=== PATIENT | male | born 1940 | race Caucasian/White ===

== ENCOUNTER 2017-11-05 05:04 | Inpatient (IN) | payer MEDICARE, BC ==
[2017-11-03 15:58] LABS: BASOPHILS % 0.1 % (0.0-1.0); EOSINOPHILS # (AUTO) 0.1 (0.0-0.4); EOSINOPHILS % 1.1 % (0.0-6.0); HEMATOCRIT 40.9 % (38.2-49.6); LYMPHOCYTES # (AUTO) 1.7 (1.0-3.2); MEAN CORPUSCULAR HEMOGLOBIN 30.8 pg (28-32); MEAN CORPUSCULAR HGB CONC 34.2 g/dL (31-35); MEAN CORPUSCULAR VOLUME 89.9 fL (81-99); MONOCYTES # (AUTO) 0.6 (0.2-0.8); MONOCYTES % 7.1 % (4.4-11.3); NEUTROPHILS # (AUTO) 5.5 (2.1-6.9); NEUTROPHILS % 69.4 % (38.7-80.0); PLATELET COUNT 223 x10e3/uL (140-360); RED BLOOD COUNT 4.55 x10e6/uL (4.3-5.7); RED CELL DISTRIBUTION WIDTH 12.9 % (11.7-14.4)
--- NOTE | 2017-11-03 16:04 | Diagnostic Imaging Report ---
PROCEDURE: Frontal and lateral views of the chest. COMPARISON: 06/28/15 INDICATIONS: PRE OP CHEST XRAY FINDINGS: Lines/tubes: None. Lungs: The lungs are well inflated and clear. There is no evidence of pneumonia or pulmonary edema. Pleura: There is no pleural effusion or pneumothorax. Heart and mediastinum: The heart and the mediastinum are normal. Bones: No acute bony abnormality. Degenerative changes of thoracic spine. Partially mid cervical spine fusion hardware. IMPRESSION: 1. No acute cardiopulmonary disease. Dictated by: Jovanny Schultz M.D. on 11/03/2017 at 16:10 Electronically approved by: Jovanny Schultz M.D. on 11/03/2017 at 16:10
[~2017-11-05] VITALS: Ht 182.9 cm; Wt 111.1 kg
[~2017-11-05 05:04] MED LIST: ADVAIR HFA 115-12 GM; ASPIR 8181 MG PO; DICLOFENAC SODI75 MG PO; DICLOFENAC TOP; FINASTERIDE5 MG PO; FLUTICASONE PRO16 GM; LISINOPRIL5 MG PO; MISOPROSTOL200 MCG PO; SIMVASTATIN20 MG PO; SODIUM TOP; TAMSULOSIN HCL0.4 MG; VOLTAREN100 GM TOP
[2017-11-05] MEDS ORDERED: GENTAMICIN 80MG/NS 100 ML 200 ML IV ONE (05:42)
[2017-11-05] MEDS ORDERED: CEFTRIAXONE SOD 1 GM VIAL ONE (05:42)
[2017-11-05] MEDS ORDERED: BELLADONNA/OPIUM 30 MG SUPP RC ONE (06:39)
[2017-11-05] MEDS ORDERED: IOPAMIDOL 300MG/ML 50ML INFUS..BTL IV ONE (06:39)
[2017-11-05] MEDS ORDERED: FENTANYL CITRATE/PF 100MCG/2 ML INJ ONE ×2 (08:58→17:41)
[2017-11-05] MEDS ORDERED: HYDROCODONE/APAP 5MG-325MG TAB ONE (10:30)
[2017-11-05] MEDS ORDERED: D5.45%NS/KCL 20MEQ 1,000 ML IV SCH (11:50)
[2017-11-05] MEDS ORDERED: DIPHENHYDRAMINE HCL 25 MG CAP PO PRN (12:00)
[2017-11-05] MEDS ORDERED: ONDANSETRON HCL INJ 2 MG/ML VIAL IV PRN (12:00)
[2017-11-05] MEDS ORDERED: DIPHENHYDRAMINE HCL INJ 50 MG/ML VIAL IM PRN (12:00)
[2017-11-05] MEDS ORDERED: ACETAMINOPHEN 1000 MG/100 ML IV PRN (12:00)
[2017-11-05] MEDS ORDERED: NALOXONE HCL INJ 0.4 MG/ML AMP IV PRN (12:00)
[2017-11-05] MEDS ORDERED: MORPHINE SULFATE 1 MG/ML 30ML PCA IV PRN (12:00)
[2017-11-05 13:37] VITALS: BP 126/63
[2017-11-05] MEDS: OXYBUTYNIN CHLORIDE 5 MG TAB PO SCH ×2 (14:15→16:55)
[2017-11-05] MEDS ORDERED: SEVOFLURANE INHAL SOLN 250 ML PEN BTL ONE (14:24)
[2017-11-05] MEDS ORDERED: PROPOFOL IV EMULSION 10 MG/ML 20 ML VIAL ONE (14:24)
[2017-11-05] MEDS ORDERED: DEXAMETHASONE SOD PHOS INJ 4 MG/ML VIAL ONE (14:24)
[2017-11-05] MEDS ORDERED: ONDANSETRON HCL INJ 2 MG/ML VIAL ONE (14:24)
[2017-11-05] MEDS ORDERED: LIDOCAINE HCL 2% LOCAL INJ 5 ML SDV VIAL INJ ONE (14:24)
[2017-11-05] MEDS ORDERED: EPHEDRINE SULFATE INJ 50 MG/10 ML SYR ONE (14:24)
[2017-11-05] MEDS ORDERED: GLYCOPYRROLATE INJ 1MG/ 5 ML SYR ONE (14:24)
[2017-11-05] MEDS ORDERED: FLUTICASONE PROPIONATE NASAL SPRAY NS PRN (15:15)
[2017-11-05 16:00] VITALS: BP 135/68
[2017-11-05] MEDS: PHENAZOPYRIDINE HCL 100 MG TAB PO SCH (16:00)
[2017-11-05] MEDS: DOCUSATE SODIUM 100 MG CAP PO SCH (16:55)
[2017-11-05] MEDS: DICLOFENAC SOD 50 MG TAB PO SCH (16:55)
[2017-11-05] MEDS: ACETAMINOPHEN/CODEINE 300MG - 30MG TAB PO PRN ×2 (16:55→23:38)
[2017-11-05] MEDS: MISOPROSTOL 100 MCG TAB PO SCH (16:59)
[2017-11-05] MEDS ORDERED: NON-FORMULARY MEDICATION (Diclofenac Sodium 75 MG) PO SCH (17:00)
[2017-11-05] MEDS ORDERED: MISOPROSTOL 200 MCG PO SCH (17:00)
[2017-11-05] MEDS ORDERED: MIDAZOLAM HCL 2 MG/2 ML VIAL ONE (17:41)
[2017-11-05] MEDS: DEXTROSE 5%/0.45% SOD CHL 1,000 ML IV SCH (19:51)
[2017-11-05 20:00] VITALS: BP 136/58
[2017-11-05 20:12] VITALS: BP 136/58
[2017-11-05] MEDS: SIMVASTATIN 20 MG TAB PO SCH (20:53)
[2017-11-06] VITALS (8 sets, daily range): BP systolic 119–158; BP diastolic 56–70
[2017-11-06] MEDS: DEXTROSE 5%/0.45% SOD CHL 1,000 ML IV SCH ×3 (03:45→20:48)
[2017-11-06 04:36] LABS: BASOPHILS % 0.1 % (0.0-1.0); EOSINOPHILS % 0.1 % (0.0-6.0); LYMPHOCYTES # (AUTO) 1.3 (1.0-3.2); LYMPHOCYTES % 11.8 % (18.0-39.1); MEAN CORPUSCULAR HEMOGLOBIN 30.2 pg (28-32); MEAN CORPUSCULAR HGB CONC 33.3 g/dL (31-35); MEAN CORPUSCULAR VOLUME 90.7 fL (81-99); MONOCYTES # (AUTO) 0.7 (0.2-0.8); MONOCYTES % 6.6 % (4.4-11.3); NEUTROPHILS # (AUTO) 8.8 (2.1-6.9); PLATELET COUNT 217 x10e3/uL (140-360); RED CELL DISTRIBUTION WIDTH 13.2 % (11.7-14.4)
[2017-11-06 05:00] LABS: CREATININE, SERUM 1.19 mg/dL (0.72-1.25)
[2017-11-06] MEDS ORDERED: LISINOPRIL 2.5 MG TAB PO SCH (09:00)
[2017-11-06] MEDS ORDERED: SIMVASTATIN 20 MG TAB PO SCH (09:00)
[2017-11-06] MEDS ORDERED: NON-FORMULARY MEDICATION (Lisinopril 5 MG) PO SCH (09:00)
[2017-11-06] MEDS: DICLOFENAC SOD 50 MG TAB PO SCH ×2 (10:23→18:00)
[2017-11-06] MEDS: DOCUSATE SODIUM 100 MG CAP PO SCH ×2 (10:23→18:00)
[2017-11-06] MEDS: FINASTERIDE 5 MG TAB PO SCH (10:23)
[2017-11-06] MEDS: PHENAZOPYRIDINE HCL 100 MG TAB PO SCH ×3 (10:23→20:11)
[2017-11-06] MEDS: TAMSULOSIN HCL 0.4 MG CAP PO SCH (10:23)
[2017-11-06] MEDS: MISOPROSTOL 100 MCG TAB PO SCH ×2 (10:23→18:00)
[2017-11-06] MEDS: OXYBUTYNIN CHLORIDE 5 MG TAB PO SCH ×3 (10:23→20:11)
[2017-11-06] MEDS: SIMVASTATIN 20 MG TAB PO SCH (20:11)
[2017-11-07] VITALS (8 sets, daily range): BP systolic 107–166; BP diastolic 51–79
[2017-11-07 04:28] LABS: BASOPHILS % 0.3 % (0.0-1.0); EOSINOPHILS # (AUTO) 0.3 (0.0-0.4); EOSINOPHILS % 3.7 % (0.0-6.0); HEMATOCRIT 39.4 % (38.2-49.6); HEMOGLOBIN 12.9 g/dL (14.0-18.0); LYMPHOCYTES # (AUTO) 1.8 (1.0-3.2); LYMPHOCYTES % 26.1 % (18.0-39.1); MEAN CORPUSCULAR HEMOGLOBIN 30.4 pg (28-32); MEAN CORPUSCULAR HGB CONC 32.7 g/dL (31-35); MEAN CORPUSCULAR VOLUME 92.7 fL (81-99); MONOCYTES # (AUTO) 0.6 (0.2-0.8); MONOCYTES % 8.7 % (4.4-11.3); NEUTROPHILS # (AUTO) 4.2 (2.1-6.9); NEUTROPHILS % 60.6 % (38.7-80.0); PLATELET COUNT 171 x10e3/uL (140-360); RED BLOOD COUNT 4.25 x10e6/uL (4.3-5.7); RED CELL DISTRIBUTION WIDTH 13.4 % (11.7-14.4)
[2017-11-07 04:52] LABS: ANION GAP 12.5 mmol/L (8-16); CALCIUM 8.9 mg/dL (8.4-10.2); CREATININE, SERUM 1.34 mg/dL (0.72-1.25); POTASSIUM 4.5 mmol/L (3.5-5.1)
[2017-11-07] MEDS: PHENAZOPYRIDINE HCL 100 MG TAB PO SCH ×3 (09:03→21:00)
[2017-11-07] MEDS: MISOPROSTOL 100 MCG TAB PO SCH ×2 (09:03→16:08)
[2017-11-07] MEDS: DOCUSATE SODIUM 100 MG CAP PO SCH ×2 (09:03→16:08)
[2017-11-07] MEDS: OXYBUTYNIN CHLORIDE 5 MG TAB PO SCH ×3 (09:03→21:00)
[2017-11-07] MEDS: FINASTERIDE 5 MG TAB PO SCH (09:03)
[2017-11-07] MEDS: TAMSULOSIN HCL 0.4 MG CAP PO SCH (09:03)
[2017-11-07] MEDS: DICLOFENAC SOD 50 MG TAB PO SCH ×2 (09:03→16:08)
[2017-11-07] MEDS ORDERED: BISACODYL 10 MG SUPP PR NR (10:30)
[2017-11-07] MEDS ORDERED: BISACODYL 10 MG SUPP PR ONE (14:00)
[2017-11-07] MEDS: ACETAMINOPHEN/CODEINE 300MG - 30MG TAB PO PRN (16:08)
[2017-11-07] MEDS: DEXTROSE 5%/0.45% SOD CHL 1,000 ML IV SCH (18:24)
[2017-11-07] MEDS: SIMVASTATIN 20 MG TAB PO SCH (21:00)
[2017-11-08] VITALS: BP 161/72
[2017-11-08 04:00] VITALS: BP 162/85
[2017-11-08 06:24] LABS: BASOPHILS % 0.3 % (0.0-1.0); EOSINOPHILS # (AUTO) 0.4 (0.0-0.4); EOSINOPHILS % 6.2 % (0.0-6.0); HEMATOCRIT 43.8 % (38.2-49.6); HEMOGLOBIN 14.1 g/dL (14.0-18.0); LYMPHOCYTES # (AUTO) 1.9 (1.0-3.2); LYMPHOCYTES % 30.1 % (18.0-39.1); MEAN CORPUSCULAR HEMOGLOBIN 29.9 pg (28-32); MEAN CORPUSCULAR HGB CONC 32.2 g/dL (31-35); MONOCYTES # (AUTO) 0.5 (0.2-0.8); MONOCYTES % 8.1 % (4.4-11.3); NEUTROPHILS # (AUTO) 3.5 (2.1-6.9); NEUTROPHILS % 54.8 % (38.7-80.0); PLATELET COUNT 205 x10e3/uL (140-360); RED BLOOD COUNT 4.71 x10e6/uL (4.3-5.7); RED CELL DISTRIBUTION WIDTH 13.2 % (11.7-14.4)
[2017-11-08 06:41] LABS: CALCIUM 9.2 mg/dL (8.4-10.2); CREATININE, SERUM 1.34 mg/dL (0.72-1.25)
[2017-11-08 07:00] VITALS: BP 150/75
[2017-11-08] MEDS: MISOPROSTOL 100 MCG TAB PO SCH (09:03)
[2017-11-08] MEDS: DOCUSATE SODIUM 100 MG CAP PO SCH (09:03)
[2017-11-08] MEDS: OXYBUTYNIN CHLORIDE 5 MG TAB PO SCH ×2 (09:03→13:40)
[2017-11-08] MEDS: FINASTERIDE 5 MG TAB PO SCH (09:03)
[2017-11-08] MEDS: TAMSULOSIN HCL 0.4 MG CAP PO SCH (09:03)
[2017-11-08] MEDS: DICLOFENAC SOD 50 MG TAB PO SCH (09:03)
[2017-11-08] MEDS: PHENAZOPYRIDINE HCL 100 MG TAB PO SCH ×2 (09:03→13:40)
[2017-11-08] MEDS ORDERED: BISACODYL 10 MG SUPP PR NR (09:30)
[2017-11-08 11:22] VITALS: BP 150/75
[2017-11-08 12:00] VITALS: BP 159/87
[2017-11-08] MEDS: DEXTROSE 5%/0.45% SOD CHL 1,000 ML IV SCH (12:48)
[2017-11-08] MEDS ORDERED: CIPRO500 MG PO (12:53)
[2017-11-08] MEDS ORDERED: TYLENOL WITH C1 EACH PO (12:53)
[2017-11-08] MEDS ORDERED: COLACE100 MG PO (12:53)
[2017-11-08] MEDS: ACETAMINOPHEN/CODEINE 300MG - 30MG TAB PO PRN (13:40)
--- NOTE | 2017-12-12 20:04 | Discharge Summary ---
This patient came to the hospital with status post TURP. The patient underwent a TURP. Patient's hemoglobin is monitored, up and down from 13 to 12.9. Creatinine was monitored 1.35, was his initial creatinine when I was consulted. The patient felt better, but continued to have massive amount of pain, clots in his Ríos despite continuous Ríos irrigation. The patient's hyperlipidemia medications and his hypertension medicines were restarted. H and H were monitored very frequently and once the patient was stable and no more bleeds were noted in the Ríos bag, the patient was discharged home in a stable condition. FINAL DIAGNOSES 1. Status post transurethral resection of prostate. 2. Hematuria. 3. Hypertension. 4. Hyperlipidemia. Job#: [id number] CQ
--- NOTE | 2018-01-13 09:18 | Operative Report ---
DATE OF PROCEDURE: November 05, 2017 PREOPERATIVE DIAGNOSES 1. Bladder cancer. 2. Obstructive BPH. POSTOPERATIVE DIAGNOSES 1. Bladder cancer. 2. Obstructive BPH. OPERATIONS PERFORMED 1. Cystourethroscopy with bilateral ureteral catheterization. 2. Retrograde ureteropyelography (separate procedure performed for bladder cancer). 3. Interpretation of retrograde ureteropyelography. 4. Cystourethroscopy with transurethral resection of the prostate utilizing the plasma button electrode. ANESTHESIA: General. COMPLICATIONS: None. CLINICAL SUMMARY: Francisco Watkins is a 77-year-old man with bladder cancer. He has undergone transurethral resection of prostate on 2 prior occasions. He has a postvoid residual greater than 110 mL and slow urinary stream and now needs management. He is aware of the risks of bleeding, infection, injury to adjacent structures, need additional procedures and elected to proceed. OPERATIVE PROCEDURE IN DETAIL: Informed consent was verified. Francisco Watkins was properly identified and taken to the operating room and placed on the cystoscopy table in the supine position. Anesthesia was uneventfully begun. The patient was then carefully and gently repositioned in the dorsal lithotomy position with all pressure points well-padded. His genitalia were prepared and draped in the usual sterile fashion. A 22.5-Yoruba cystoscope sheath with visual obturator in place was atraumatically inserted in the patient's urethra. It was guided down the unremarkable urethra through a wide caliber not clinically significant stricture outside the sphincteric region. We passed a normal sphincteric region into the patient's prostate bed, which was visually blocked by apical tissue. There was fusion of the lateral lobes anteriorly from just inside the apex, and there was posterior regrowth of tissue from prior resection. We entered the patient's bladder. Panendoscopy of the bladder revealed trabeculations and scars consistent with prior bladder tumor resections. There were no suspicious lesions. There were no stones. Ureteral catheter was used to cannulate each ureter and retrograde ureteropyelograms were performed. Interpretation of retrograde ureteropyelography. Contrast was instilled in a retrograde fashion bilaterally. There were no tumors. No stones and no diverticula. Unobstructed drainage was observed bilaterally fluoroscopically. The resectoscope was atraumatically inserted and the plasma button electrode was utilized to vaporize the prostate from the bladder neck to, but never past the verumontanum. A thorough apical vaporization was performed as well. Hemostasis was obtained with pinpoint electrocautery. Wide open prostatic channel was obtained. The resectoscope was withdrawn. Continuous flow irrigation catheter was placed. The patient was uneventfully reversed from anesthesia and taken to the recovery room in stable condition. There were no complications to the procedure. He tolerated the procedure well. Explicit postoperative instructions were given. Will follow the patient up indefinitely. Job#: [id number] NIHARIKA
--- OUTSIDE RECORDS SUMMARY | 2018-01-14 21:03 | XMS REPORT ---
Author [facility] Address Unknown Phone Unavailable Care Team Providers Care Energy Trader Name Role Phone VILLA BURRIS Unavailable Unavailable Problems This patient has no known problems. Allergies, Adverse Reactions, Alerts This patient has no known allergies or adverse reactions. Medications This patient has no known medications. Results Test Description Test Time Test Comments Text Results Atomic Results Result Comments CHEST 2 VIEWS 2017-11-03 16:10:00 [facility] [address] [place], [place] [address] Patient Name: RUFINA MEDLEY MR #: [id number] : 1940 Age/Sex: 77/M Req #: [id number] Adm Physician: Ordered by: PADMINI JONES MD Report #: [id number] Location: OR Room/Bed: Procedure: [id number] DX/CHEST 2 VIEWS Exam Date: 11/03/17 Exam Time: 1545 REPORT STATUS: Signed PROCEDURE: Frontal and lateral views of the chest. COMPARISON: 06/28/15 INDICATIONS: PRE OP CHEST XRAY FINDINGS: Lines/tubes: None. Lungs: The lungs are well inflated and clear. There is no evidence of pneumonia or pulmonary edema. Pleura: There is no pleural effusion or pneumothorax. Heart and mediastinum: The heart and the mediastinum are normal. Bones: No acute bony abnormality. Degenerative changes of thoracic spine. Partially mid cervical spine fusion hardware. IMPRESSION: 1. No acute cardiopulmonary disease. Dictated by: Jovanny Rizvi M.D. on 11/03/2017 at 16:10 Electronically approved by: Jovanny Rizvi M.D. on 11/03/2017 at 16:10 Dictated By: JOVANNY RIZVI MD [id number] Transcribed By: DANYA on 11/03/17 1610 COPY TO: PADMINI JONES MD
== END 2017-11-08 13:48 | disposition home or self-care (01) | DRG 666 ==
LOC: OR 05:04 → PACU V 11:54 → MED/SURG 12:30
PROVIDERS: ADMIT Family Medicine; ATTEND Family Medicine
PROC: 0T788ZZ Dilation of Bilateral Ureters, Via Natural or Artificial Opening Endoscopic (ICD-10-PCS; 2017-11-05)
PROC: BT141ZZ Fluoroscopy of Kidneys, Ureters and Bladder using Low Osmolar Contrast (ICD-10-PCS; 2017-11-05)
PROC: 0VT08ZZ Resection of Prostate, Via Natural or Artificial Opening Endoscopic (ICD-10-PCS; principal; 2017-11-05 07:00)
DX: C67.9 Malignant neoplasm of bladder, unspecified (principal); N13.8 Other obstructive and reflux uropathy; E78.5 Hyperlipidemia, unspecified; R31.9 Hematuria, unspecified; I10 Essential (primary) hypertension; I12.9 Hypertensive chronic kidney disease with stage 1 through stage 4 chronic kidney disease, or unspecified chronic kidney disease; N18.3 Chronic kidney disease, stage 3 (moderate); N40.1 Benign prostatic hyperplasia with lower urinary tract symptoms
CPT/HCPCS: 36415; 71046; 74420; 80048; 83735; 84132; 85025; 93005; J0696; J1100; J1580; J2001; J2250; J2405

== ENCOUNTER 2022-05-03 06:53 | Inpatient (IN) | payer BC, MEDICARE ==
[2022-05-02 14:49] LABS: BASOPHILS % 0.1 % (0.0-1.0); EOSINOPHILS # (AUTO) 0.1 (0.0-0.4); EOSINOPHILS % 1.6 % (0.0-6.0); HEMATOCRIT 44.7 % (38.2-49.6); HEMOGLOBIN 14.7 g/dL (14.0-18.0); LYMPHOCYTES % 26.2 % (18.0-39.1); MEAN CORPUSCULAR HEMOGLOBIN 30.2 pg (28-32); MEAN CORPUSCULAR HGB CONC 32.9 g/dL (31-35); MEAN CORPUSCULAR VOLUME 91.8 fL (81-99); MONOCYTES # (AUTO) 0.5 (0.2-0.8); MONOCYTES % 7.1 % (4.4-11.3); NEUTROPHILS # (AUTO) 4.8 (2.1-6.9); NEUTROPHILS % 64.7 % (38.7-80.0); PLATELET COUNT 238 x10e3/uL (140-360); RED BLOOD COUNT 4.87 x10e6/uL (4.3-5.7); RED CELL DISTRIBUTION WIDTH 12.4 % (11.7-14.4)
[2022-05-02 15:06] LABS: ANION GAP 17.6 mmol/L (8-16); CALCIUM 9.5 mg/dL (8.4-10.2); CREATININE, SERUM 1.27 mg/dL (0.72-1.25); POTASSIUM 4.6 mmol/L (3.5-5.1)
[2022-05-03] VITALS (9 sets, daily range): BP systolic 122–165; BP diastolic 68–82
[~2022-05-03] VITALS: Ht 182.9 cm; Wt 108.9 kg
[~2022-05-03 06:53] MED LIST changes: +CEFTRIAXONE 1 GM VIAL ONE; +CIPRO500 MG PO; +COLACE100 MG PO; +GENTAMICIN 80MG/NS 100 ML 100 ML IV ONE; +SODIUM CHLORIDE 0.9% 1000ML 1,000 ML ONE; +TYLENOL WITH C1 EACH PO
[2022-05-03] MEDS ORDERED: IOPAMIDOL 610MG/1ML 300 MG/ML VIAL IV ONE (07:25)
[2022-05-03] MEDS ORDERED: SUGAMMADEX SODIUM 200 MG/2 ML VIAL IV ONE ×2 (08:52→14:57)
[2022-05-03] MEDS ORDERED: ONDANSETRON HCL INJ 2MG/ML 2ML 2 MG/ML VIAL IV PRN (09:45)
[2022-05-03] MEDS ORDERED: DIPHENHYDRAMINE HCL 25 MG CAP PO PRN (09:45)
[2022-05-03] MEDS ORDERED: ACETAMINOPHEN 1000 MG/100 ML IV PRN (09:45)
[2022-05-03] MEDS ORDERED: FENTANYL CITRATE/PF 100MCG/2 ML INJ ONE ×2 (09:50→18:11)
[2022-05-03 09:55] LABS: BASOPHILS % 0.3 % (0.0-1.0); EOSINOPHILS # (AUTO) 0.1 (0.0-0.4); EOSINOPHILS % 1.6 % (0.0-6.0); HEMATOCRIT 44.5 % (38.2-49.6); HEMOGLOBIN 13.8 g/dL (14.0-18.0); LYMPHOCYTES # (AUTO) 1.8 (1.0-3.2); LYMPHOCYTES % 23.9 % (18.0-39.1); MEAN CORPUSCULAR HEMOGLOBIN 30.4 pg (28-32); MONOCYTES # (AUTO) 0.4 (0.2-0.8); MONOCYTES % 4.8 % (4.4-11.3); NEUTROPHILS # (AUTO) 5.2 (2.1-6.9); NEUTROPHILS % 68.5 % (38.7-80.0); PLATELET COUNT 182 x10e3/uL (140-360); RED BLOOD COUNT 4.54 x10e6/uL (4.3-5.7); RED CELL DISTRIBUTION WIDTH 12.2 % (11.7-14.4)
[2022-05-03 10:12] LABS: ANION GAP 15.8 mmol/L (8-16); CALCIUM 8.4 mg/dL (8.4-10.2); CREATININE, SERUM 1.05 mg/dL (0.72-1.25); POTASSIUM 4.8 mmol/L (3.5-5.1)
[2022-05-03] MEDS: D5.45%NS/KCL 20MEQ 1,000 ML IV SCH (11:24)
[2022-05-03] MEDS: PHENAZOPYRIDINE HCL 100 MG TAB PO PRN (12:26)
[2022-05-03] MEDS: ACETAMINOPHEN/CODEINE 300MG - 30MG TAB PO PRN ×3 (12:27→22:12)
[2022-05-03] MEDS ORDERED: PROPOFOL IV EMULSION 10 MG/ML 20 ML VIAL ONE (14:57)
[2022-05-03] MEDS ORDERED: ONDANSETRON HCL INJ 2MG/ML 2ML 2 MG/ML VIAL ONE (14:57)
[2022-05-03] MEDS ORDERED: POVIDONE IODINE 0.05% 0.05 % ML PO ONE (14:57)
[2022-05-03] MEDS ORDERED: EPHEDRINE SULFATE INJ 50 MG/ML VIAL ONE (14:57)
[2022-05-03] MEDS ORDERED: ROCURONIUM BROMIDE 10 MG/ML 5ML VIAL IV ONE (14:57)
[2022-05-03] MEDS ORDERED: LIDOCAINE HCL 2% LOCAL INJ 5 ML SDV VIAL INJ ONE (14:57)
[2022-05-03] MEDS ORDERED: DEXAMETHASONE SOD PHOS INJ 4 MG/ML SDV ONE (14:57)
[2022-05-03] MEDS: DOCUSATE SODIUM 100 MG CAP PO SCH (16:28)
[2022-05-03] MEDS: SIMVASTATIN 20 MG TAB PO SCH (22:11)
[2022-05-04] VITALS (12 sets, daily range): BP systolic 119–143; BP diastolic 51–98
[2022-05-04] MEDS: D5.45%NS/KCL 20MEQ 1,000 ML IV SCH ×2 (00:17→12:30)
[2022-05-04 07:10] LABS: BASOPHILS % 0.1 % (0.0-1.0); EOSINOPHILS % 0.2 % (0.0-6.0); HEMATOCRIT 43.6 % (38.2-49.6); HEMOGLOBIN 13.5 g/dL (14.0-18.0); LYMPHOCYTES # (AUTO) 1.5 (1.0-3.2); LYMPHOCYTES % 12.9 % (18.0-39.1); MEAN CORPUSCULAR HEMOGLOBIN 30.4 pg (28-32); MEAN CORPUSCULAR VOLUME 98.2 fL (81-99); MONOCYTES # (AUTO) 0.8 (0.2-0.8); MONOCYTES % 6.8 % (4.4-11.3); NEUTROPHILS # (AUTO) 9.4 (2.1-6.9); NEUTROPHILS % 79.6 % (38.7-80.0); PLATELET COUNT 216 x10e3/uL (140-360); RED BLOOD COUNT 4.44 x10e6/uL (4.3-5.7); RED CELL DISTRIBUTION WIDTH 12.5 % (11.7-14.4)
[2022-05-04 07:34] LABS: ANION GAP 15.3 mmol/L (8-16); CALCIUM 8.4 mg/dL (8.4-10.2); CREATININE, SERUM 1.12 mg/dL (0.72-1.25); POTASSIUM 4.3 mmol/L (3.5-5.1)
[2022-05-04] MEDS: LISINOPRIL 2.5 MG TAB PO SCH (09:09)
[2022-05-04] MEDS: DOCUSATE SODIUM 100 MG CAP PO SCH ×2 (09:10→16:33)
[2022-05-04] MEDS: PHENAZOPYRIDINE HCL 100 MG TAB PO PRN (12:24)
[2022-05-04] MEDS: ACETAMINOPHEN/CODEINE 300MG - 30MG TAB PO PRN ×2 (12:25→20:52)
[2022-05-04] MEDS: SIMVASTATIN 20 MG TAB PO SCH (20:52)
[2022-05-05] VITALS (9 sets, daily range): BP systolic 107–155; BP diastolic 76–89
[2022-05-05] MEDS: D5.45%NS/KCL 20MEQ 1,000 ML IV SCH ×2 (04:01→15:12)
[2022-05-05 05:43] LABS: BASOPHILS % 0.2 % (0.0-1.0); EOSINOPHILS # (AUTO) 0.4 (0.0-0.4); EOSINOPHILS % 4.3 % (0.0-6.0); HEMATOCRIT 41.8 % (38.2-49.6); HEMOGLOBIN 13.7 g/dL (14.0-18.0); MEAN CORPUSCULAR HEMOGLOBIN 30.5 pg (28-32); MEAN CORPUSCULAR HGB CONC 32.8 g/dL (31-35); MEAN CORPUSCULAR VOLUME 93.1 fL (81-99); MONOCYTES # (AUTO) 0.7 (0.2-0.8); MONOCYTES % 7.7 % (4.4-11.3); NEUTROPHILS # (AUTO) 5.3 (2.1-6.9); NEUTROPHILS % 63.4 % (38.7-80.0); PLATELET COUNT 185 x10e3/uL (140-360); RED BLOOD COUNT 4.49 x10e6/uL (4.3-5.7); RED CELL DISTRIBUTION WIDTH 12.9 % (11.7-14.4)
[2022-05-05 05:51] LABS: ANION GAP 13.2 mmol/L (8-16); CALCIUM 8.7 mg/dL (8.4-10.2); CREATININE, SERUM 1.2 mg/dL (0.72-1.25); POTASSIUM 4.2 mmol/L (3.5-5.1)
[2022-05-05] MEDS: PHENAZOPYRIDINE HCL 100 MG TAB PO PRN ×2 (09:00→20:29)
[2022-05-05] MEDS: DOCUSATE SODIUM 100 MG CAP PO SCH ×2 (09:00→16:33)
[2022-05-05] MEDS: ACETAMINOPHEN/CODEINE 300MG - 30MG TAB PO PRN ×2 (09:00→20:29)
[2022-05-05] MEDS: LISINOPRIL 2.5 MG TAB PO SCH (09:01)
[2022-05-05] MEDS: SIMVASTATIN 20 MG TAB PO SCH (20:29)
[2022-05-06] VITALS: BP 173/84
[2022-05-06 05:06] LABS: BASOPHILS % 0.1 % (0.0-1.0); EOSINOPHILS # (AUTO) 0.4 (0.0-0.4); HEMATOCRIT 41.4 % (38.2-49.6); HEMOGLOBIN 13.7 g/dL (14.0-18.0); LYMPHOCYTES # (AUTO) 2.1 (1.0-3.2); LYMPHOCYTES % 29.2 % (18.0-39.1); MEAN CORPUSCULAR HEMOGLOBIN 30.6 pg (28-32); MEAN CORPUSCULAR HGB CONC 33.1 g/dL (31-35); MEAN CORPUSCULAR VOLUME 92.4 fL (81-99); MONOCYTES # (AUTO) 0.7 (0.2-0.8); MONOCYTES % 9.2 % (4.4-11.3); NEUTROPHILS # (AUTO) 3.9 (2.1-6.9); NEUTROPHILS % 55.1 % (38.7-80.0); PLATELET COUNT 186 x10e3/uL (140-360); RED BLOOD COUNT 4.48 x10e6/uL (4.3-5.7); RED CELL DISTRIBUTION WIDTH 12.5 % (11.7-14.4)
[2022-05-06 05:37] LABS: CALCIUM 8.6 mg/dL (8.4-10.2); CREATININE, SERUM 1.08 mg/dL (0.72-1.25)
[2022-05-06] MEDS: D5.45%NS/KCL 20MEQ 1,000 ML IV SCH ×2 (05:59→16:29)
[2022-05-06 07:56] VITALS: BP 172/94
[2022-05-06 08:08] VITALS: BP 172/94
[2022-05-06] MEDS: DOCUSATE SODIUM 100 MG CAP PO SCH ×2 (08:13→16:28)
[2022-05-06] MEDS: LISINOPRIL 2.5 MG TAB PO SCH (08:15)
[2022-05-06] MEDS: PHENAZOPYRIDINE HCL 100 MG TAB PO PRN ×2 (10:57→16:48)
[2022-05-06 11:54] VITALS: BP 154/80
[2022-05-06] MEDS ORDERED: ONDANSETRON HCL 4 MG ORAL DISINTEGRATING TAB PO PRN (14:15)
[2022-05-06 16:23] VITALS: BP 169/77
[2022-05-06 20:00] VITALS: BP 131/74
[2022-05-06] MEDS: ACETAMINOPHEN/CODEINE 300MG - 30MG TAB PO PRN (21:07)
[2022-05-06] MEDS: SIMVASTATIN 20 MG TAB PO SCH (21:08)
[2022-05-07] MEDS: D5.45%NS/KCL 20MEQ 1,000 ML IV SCH (01:46)
[2022-05-07 05:10] LABS: BASOPHILS % 0.1 % (0.0-1.0); EOSINOPHILS # (AUTO) 0.5 (0.0-0.4); EOSINOPHILS % 6.5 % (0.0-6.0); HEMATOCRIT 46.1 % (38.2-49.6); HEMOGLOBIN 14.4 g/dL (14.0-18.0); LYMPHOCYTES # (AUTO) 2.1 (1.0-3.2); LYMPHOCYTES % 27.1 % (18.0-39.1); MEAN CORPUSCULAR HEMOGLOBIN 30.4 pg (28-32); MEAN CORPUSCULAR HGB CONC 31.2 g/dL (31-35); MEAN CORPUSCULAR VOLUME 97.3 fL (81-99); MONOCYTES # (AUTO) 0.6 (0.2-0.8); MONOCYTES % 7.8 % (4.4-11.3); NEUTROPHILS # (AUTO) 4.5 (2.1-6.9); NEUTROPHILS % 58.1 % (38.7-80.0); PLATELET COUNT 204 x10e3/uL (140-360); RED BLOOD COUNT 4.74 x10e6/uL (4.3-5.7)
[2022-05-07 05:16] VITALS: BP 131/74
[2022-05-07 05:17] VITALS: BP 164/85
[2022-05-07 05:30] LABS: ANION GAP 12.9 mmol/L (8-16); CALCIUM 9.3 mg/dL (8.4-10.2); CREATININE, SERUM 1.07 mg/dL (0.72-1.25); POTASSIUM 3.9 mmol/L (3.5-5.1)
[2022-05-07 08:00] VITALS: BP 116/87
[2022-05-07 08:10] VITALS: BP 116/87
[2022-05-07] MEDS: LISINOPRIL 2.5 MG TAB PO SCH (10:00)
[2022-05-07] MEDS: DOCUSATE SODIUM 100 MG CAP PO SCH (10:00)
[2022-05-07] MEDS ORDERED: LEVOFLOXACIN250 MG PO (12:43)
[2022-05-07 12:53] VITALS: BP 121/89
== END 2022-05-07 14:10 | disposition home or self-care (01) | DRG 714 ==
LOC: OR 06:53 → PACU V 09:34 → MED/SURG 10:05
PROVIDERS: ADMIT Family Medicine; ATTEND Family Medicine
PROC: 0T788ZZ Dilation of Bilateral Ureters, Via Natural or Artificial Opening Endoscopic (ICD-10-PCS; 2022-05-03)
PROC: BT141ZZ Fluoroscopy of Kidneys, Ureters and Bladder using Low Osmolar Contrast (ICD-10-PCS; 2022-05-03)
PROC: 0T7D8ZZ Dilation of Urethra, Via Natural or Artificial Opening Endoscopic (ICD-10-PCS; 2022-05-03)
PROC: 0V508ZZ Destruction of Prostate, Via Natural or Artificial Opening Endoscopic (ICD-10-PCS; principal; 2022-05-03 08:00)
DX: N40.1 Benign prostatic hyperplasia with lower urinary tract symptoms (principal); C67.5 Malignant neoplasm of bladder neck; R33.8 Other retention of urine; Z85.51 Personal history of malignant neoplasm of bladder; I10 Essential (primary) hypertension; E78.5 Hyperlipidemia, unspecified; E66.09 Other obesity due to excess calories; Z68.32 Body mass index [BMI] 32.0-32.9, adult; R39.15 Urgency of urination; N52.9 Male erectile dysfunction, unspecified; R35.0 Frequency of micturition; R97.20 Elevated prostate specific antigen [PSA]; R35.1 Nocturia; R39.14 Feeling of incomplete bladder emptying; Z20.822 Contact with and (suspected) exposure to COVID-19; N35.819 Other urethral stricture, male, unspecified site
CPT/HCPCS: 0223U; 36415; 71046; 74420; 80048; 83735; 85025; 88304; 88305; 93005; 94799; 99252; C1758; J0696; J1100; J1580; J2001; J2405; J3010; J7030